=== PATIENT | female | born 1965 | race Two or more races ===

== ENCOUNTER → 2024-03-22 | Day surgery (SDC) | payer OTHER ==
[~2024-03-22] VITALS: Ht 154.9 cm; Wt 64.0 kg
[~2024-03-22] MED LIST: DICL75TA3 PO; GLIP5TAB21 PO; LACT10SO3 PO; LISI2.5T47 PO; METF-490 PO; PROPOFOL 10 MG/ML 20 ML IV ONE; SIMV20TA20 PO; fentaNYL CITRATE 100 MCG/2 ML VL ONE
--- NOTE | 2024-03-22 11:14 | DVHHP2 ---
GI H&P Pre-Op Assessment Date: 03/22/24 Chief complaint: colon cancer screening, blood in stool, constipation HPI: per clinic note Past medical history: per clinic note Past surgical history: per clinic note Family history: per clinic note Physical exam: General: NAD, AAOX3 HEENT: PERRL, no scleral icterus, normal hearing, gums without lesions or bleeding, oropharynx clear without erythema or exudate. Neck: Supple without enlargement of the thyroid, or lymphadenopathy. Chest: Normal size and shape, no tenderness, lung castellanos clear to auscultation and percussion, nonlabored breathing. Heart: RRR, no murmur Abdomen: non-distended, no tenderness to palpation, +BS, no hepatosplenomegaly Extremities: no edema Neurological: CN II-XII intact, sensation intact in all extremities, 5+ strength in all extremities Skin: No rashes, No jaundice Assessment: - colon cancer screening, blood in stool, constipation Plan: - Colonoscopy - Risks (bleeding, infection, perforation, reaction to sedation medications and cardiopulmonary arrest) and benefit of the procedure were explained to patient. Patient agrees to undergo the procedure. PARMJIT BROWN MD Mar 22, 2024 11:13
[2024-03-22 11:37] VITALS: PULSE 62; RESP 15; TEMP 97.6; O2SAT 100
--- NOTE | 2024-03-22 11:37 | DVHOP2 ---
Operative Report DATE OF OPERATION: 03/22/24 PROCEDURE: Colonoscopy. PREOPERATIVE INDICATION: The patient is a 58 -year-old female undergoing colonoscopy for constipation, blood in stool and colon cancer screening. POSTOPERATIVE DIAGNOSES: 1. Few small diverticulosis. PROCEDURE PERFORMED BY: Diaz De La Rosa M.D. SCOPE: Olympus videocolonoscope. ASA CLASS: 3 PREOPERATIVE MEDICATIONS: MAC with Dr Bella PROCEDURE IN DETAIL: After obtaining an informed consent, the patient was placed on left lateral decubitus position. She was then sedated with the above medications. A rectal examination was performed that was normal. The colonoscope was then passed through the anus into the rectosigmoid and through the descending, transverse, and ascending colon up to the cecum with visualization of the appendiceal orifice, base of the cecum and the ileocecal valve. No mass or polyp was observed. There was a few small diverticulosis. The colonoscope was then withdrawn. The patient tolerated the procedure well without difficulty. WITHDRAWAL TIME: 6 minutes QUALITY OF THE PREP: [place] Bowel Prep score: 7 COMPLICATIONS : None SPECIMENS: None DISPOSITION: D/C to home PLAN: 1. Repeat colonoscopy in 10 years for colon cancer screening. DIAZ DE LA ROSA MD Mar 22, 2024 11:37
--- NOTE | 2024-03-22 11:38 | DVHDS2 ---
Physician Discharge Progress N Final Diagnosis: diverticulosis Operations or Procedures: Operations or Procedures colonoscopy Condition on Discharge: Good Disposition: Home Discharge Instructions: Diet: Regular Activity: No Restrictions, As Tolerated Medications: resume previous home medications Follow Up Care: Discharge Statement: "Patient was advised to return to the ER or call 911 if any headaches, dizziness, shortness of breath, chest pain, abdominal pain, bleeding, fevers, or worsening of medical condition. Patient was counseled about treatment plan, medications, possible side effects, patientverbalized understanding. All questions were answered to the best of my ability. This discharge took greater then 30 minutes in planning, reviewing documentation, counseling the patient, and discussing with other team members." PARMJIT BROWN MD Mar 22, 2024 11:38
[2024-03-22 11:52] VITALS: BP 112/77; PULSE 63; RESP 17; O2SAT 100
== END | disposition home or self-care (01) ==
LOC: GI 09:33
PROVIDERS: ATTEND Internal Medicine Gastroenterology
DX: K59.00 Constipation, unspecified (principal); K57.30 Diverticulosis of large intestine without perforation or abscess without bleeding; E11.9 Type 2 diabetes mellitus without complications; I10 Essential (primary) hypertension; E78.5 Hyperlipidemia, unspecified; Z79.84 Long term (current) use of oral hypoglycemic drugs; Z98.891 History of uterine scar from previous surgery; Z80.0 Family history of malignant neoplasm of digestive organs; Z79.899 Other long term (current) drug therapy
CPT/HCPCS: 45378; 82962; J2704; J3010; J7030